=== PATIENT | female | born 1940 | race African-American/Black ===

== ENCOUNTER 2016-06-27 09:55 | Emergency (ER) | payer MEDICARE, BC ==
--- NOTE | ~2016-06-27 | CR282 ---
[facility]. [facility] A Service of [facility] & [facility] RADIOLOGY TEXT RESULTS PATIENT: FELICIANO HAN LOCATION: SED : 38 UNIT #: [id number] AGE: [address]: Patti Bradford MD SEX: F ORDER DR: [id number] [place] [id number] E MR#: [id number] Acc #: [id number] NAME: FELICIANO HAN : 1940 SEX: F STUDY DATE/TIME: 06/27/2016 10:16 UNIT: SED ROOM: STUDY DESCRIPTION: CR Wrist Min 3 View Rt Attending Physician: Patti Bradford M.D. Ordering Physician: Patti Bradford M.D. Primary Care Physician: Pao Herman M.D. MEDICAL IMAGING REPORT This report is preliminary unless electronic signature is present. EXAM Right wrist HISTORY Wrist pain after slipping on a pile of towels this morning. TECHNIQUE 3 views wrist were obtained FINDINGS 3 views of the wrist show a transverse distal radial fracture. There is no significant impaction displacement or angulation. Adjacent soft tissue swelling is seen. The distal ulna is intact as are the carpal bones. IMPRESSION Nondisplaced nonangulated transverse distal radial fracture. Dictated by... Raul Friedman M.D. THIS IS AN ELECTRONICALLY VERIFIED REPORT Raul Friedman M.D. at 06/27/2016 4:06 PM RLF/to TD: 06/27/2016 11:33 JOB #: [id number] MEDICAL IMAGING REPORT Page 1 of 1
--- NOTE | ~2016-06-27 | CT71 ---
[facility] A Service of [facility] & [facility] RADIOLOGY TEXT RESULTS PATIENT: FELICIANO HAN LOCATION: SED : 38 UNIT #: [id number] AGE: [address]: Patti Bradford MD SEX: F ORDER DR: [id number] [address] [address] [id number] E MR#: [id number] Acc #: [id number] NAME: FELICIANO HAN : 1940 SEX: F STUDY DATE/TIME: 06/27/2016 10:12 UNIT: SED ROOM: STUDY DESCRIPTION: CT Head Wo Contrast Attending Physician: Patti Bradford M.D. Ordering Physician: Patti Bradford M.D. Primary Care Physician: Pao Herman M.D. MEDICAL IMAGING REPORT This report is preliminary unless electronic signature is present. EXAM CT head, 06/27/2016 HISTORY Fall. Slipped on pile of towels in laundry room and hit back of head on floor. No loss of consciousness. Had some pain in back of head last night. Knot back of head. Painful when touched. The patient on blood thinners. Also right wrist pain this a.m. with movement. TECHNIQUE This CT exam was performed with one or more of the following radiation dose reduction techniques: automatic exposure control, adjustment of mA and/or kV according to patient size, and iterative reconstruction. FINDINGS CT head performed skull base through vertex without intravenous contrast. No prior CTs for comparison. The brainstem is unremarkable. Cerebellum and cerebral hemispheres show normal palafox matter-white matter differentiation. No hemorrhage. No evidence of acute cortical ischemia. The midline structures are nondisplaced. The basal ganglia are intact. The ventricles, cisterns and sulci within normal limits of size and contour for a patient of this age. There is no intra or extraaxial mass effect or abnormal intracranial fluid collection. There are some scattered cavernous carotid arterial calcifications. The intraorbital soft tissues are unremarkable. The visualized paranasal sinuses and mastoid air cells are clear. No fracture. No extracranial soft tissue abnormality suggested. IMPRESSION 1. No acute abnormality is seen in the brain. If the patient has ongoing neurologic symptoms, consider followup imaging. 2. No fracture. 3. There is no clear indication of acute extracranial soft tissue [facility] A Service of [facility] & [facility] RADIOLOGY TEXT RESULTS PATIENT: FELICIANO HAN LOCATION: SED : 38 UNIT #: [id number] AGE: [address]: Patti Bradford MD SEX: F ORDER DR: traumatic abnormality. Correlate with exam. Dictated by... Zachary Peña M.D. THIS IS AN ELECTRONICALLY VERIFIED REPORT Zachary Peña M.D. at 06/28/2016 5:56 PM Josy TD: 06/27/2016 11:39 JOB #: [id number] MEDICAL IMAGING REPORT Page 1 of 1
[~2016-06-27 09:55] MED LIST: AMLODIPINE BESY10 MG PO; BENADRYL25 MG; BUMEX2 MG PO; CALCIUM1 TAB.CHEW; COUMADIN1 MG PO; DESYREL50 MG; ESTRACE0.5 MG; METOPROLOL TAR25 MG; SIMVASTATIN20 MG PO; ST JOSEPH ASPIR81 MG PO
== END 2016-06-27 11:10 | disposition home or self-care (01) ==
LOC: SED 09:55
DX: S52.591A Other fractures of lower end of right radius, initial encounter for closed fracture (principal); S00.03XA Contusion of scalp, initial encounter; I10 Essential (primary) hypertension; I48.91 Unspecified atrial fibrillation; Z91.040 Latex allergy status; Z79.82 Long term (current) use of aspirin; Z79.899 Other long term (current) drug therapy; Z79.01 Long term (current) use of anticoagulants; W01.0XXA Fall on same level from slipping, tripping and stumbling without subsequent striking against object, initial encounter; Y92.009 Unspecified place in unspecified non-institutional (private) residence as the place of occurrence of the external cause
CPT/HCPCS: 29125; 70450; 73110; 99284

== ENCOUNTER → 2016-07-12 | Outpatient (CLI) | payer MEDICARE, BC ==
[2016-07-12 11:47] LABS: INR 2.5; PROTHROMBIN TIME (PATIENT) 28.5 SECONDS (9.5-12.4)
== END | disposition home or self-care (01) ==
LOC: SLAB 09:04
PROVIDERS: Internal Medicine Interventional Cardiology
DX: I48.0 Paroxysmal atrial fibrillation (principal)
CPT/HCPCS: 36415; 85610

== ENCOUNTER → 2016-09-06 | Outpatient (CLI) | payer MEDICARE, BC ==
[2016-09-06 12:24] LABS: INR 2.1
== END | disposition home or self-care (01) ==
LOC: SLAB 09:12
PROVIDERS: Internal Medicine Interventional Cardiology
DX: I48.0 Paroxysmal atrial fibrillation (principal)
CPT/HCPCS: 36415; 85610

== ENCOUNTER → 2016-11-01 | Outpatient (CLI) | payer MEDICARE, BC ==
[2016-11-01 11:24] LABS: PROTHROMBIN TIME (PATIENT) 22.3 SECONDS (9.5-12.4)
== END | disposition home or self-care (01) ==
LOC: SLAB 09:33
PROVIDERS: Internal Medicine Interventional Cardiology
DX: Z51.81 Encounter for therapeutic drug level monitoring (principal); I48.0 Paroxysmal atrial fibrillation; Z79.01 Long term (current) use of anticoagulants
CPT/HCPCS: 36415; 85610

== ENCOUNTER → 2016-11-26 | Outpatient (CLI) | payer MEDICARE, BC ==
--- NOTE | ~2016-11-26 | MY30 ---
[facility]. [facility] A Service [facility] RADIOLOGY TEXT RESULTS PATIENT: FELICIANO HAN LOCATION: [facility] : 38 UNIT #: [id number] AGE: [address]: Maryan Rg MD SEX: F ORDER DR: [id number] [address] [address] [id number] O MR#: [id number] Acc #: [id number] NAME: FELICIANO HAN : 1940 SEX: F STUDY DATE/TIME: 11/26/2016 11:38 UNIT: [facility] ROOM: STUDY DESCRIPTION: MY SCREEN GM BILAT DIGITAL Attending Physician: Maryan Rg M.D. Referring Physician: Maryan Rg M.D. Ordering Physician: Maryan Rg M.D. Primary Care Physician: Fredy Chávez M.D. MEDICAL IMAGING REPORT This report is preliminary unless electronic signature is present. EXAM Bilateral digital screening mammogram with CAD COMPARISON May 10, 2015, May 03, 2014, January 27, 2013, November 30, 2010, November 29, 2009. INDICATION Breast cancer screening. A 76-year asymptomatic female. No personal or family history breast cancer. FINDINGS Breast tissues are extremely dense which may lower the sensitivity of mammography. Evaluation of the superior posterior third of the left breast is limited on MLO view due to indwelling pacemaker. No suspicious findings are seen in either breast. IMPRESSION No mammographic evidence of malignancy. Given the patient's breast density she would likely benefit from screening breast tomosynthesis. However given the patient's age, unsure how much additional lifetime breast cancer screening benefit this would add. 3-D mammography (tomosynthesis) has 40% higher sensitivity for detection of invasive breast cancer and diminished false positive callback rate as compared to conventional 2-D mammography. Patients over the age of 40 are entered into a reminder system with target due date for the next mammogram. A result letter will also be sent to the patient. BIRADS: 2 Benign Finding [facility] A Service [facility] RADIOLOGY TEXT RESULTS PATIENT: FELICIANO HNA LOCATION: [facility] : 38 UNIT #: [id number] AGE: [address]: Maryan Rg MD SEX: F ORDER DR: Dictated by... Eric Cota M.D. THIS IS AN ELECTRONICALLY VERIFIED REPORT Eric Cota M.D. at 12/04/2016 1:33 AM Nico TD: 11/26/2016 20:55 JOB #: [id number] MEDICAL IMAGING REPORT Page 1 of 1
== END | disposition home or self-care (01) ==
LOC: SMAM 11:00
DX: Z12.31 Encounter for screening mammogram for malignant neoplasm of breast (principal)
CPT/HCPCS: G0202